=== PATIENT | female | born 2000 | race Two or more races ===

== ENCOUNTER 2024-06-10 17:34 | Observation (INO) | payer OTHER ==
[~2024-06-10] VITALS: Ht 154.9 cm; Wt 54.6 kg
[2024-06-10 17:53] VITALS: BP 121/62; PULSE 106; RESP 16; O2SAT 98
== END 2024-06-10 19:31 | disposition home or self-care (01) ==
LOC: ER 17:34 → LDRP 18:22
PROVIDERS: ADMIT Obstetrics & Gynecology; ATTEND Obstetrics & Gynecology
DX: O26.892 Other specified pregnancy related conditions, second trimester (principal); R10.9 Unspecified abdominal pain; R30.0 Dysuria; L29.9 Pruritus, unspecified; Z3A.28 28 weeks gestation of pregnancy
CPT/HCPCS: 59025; 81002; 94760; 99284; G0378